=== PATIENT | female | born 1990 | race Caucasian/White ===

== ENCOUNTER 2020-02-12 11:35 | Emergency (ER) | payer BC ==
[~2020-02-12] VITALS: Ht 160 cm; Wt 79.8 kg
[2020-02-12 11:48] VITALS: BP 132/75
== END 2020-02-12 12:40 | disposition home or self-care (01) ==
LOC: ER 11:49
DX: U07.1 COVID-19 (principal); R50.9 Fever, unspecified; R07.9 Chest pain, unspecified